=== PATIENT | male | born 1945 | race Caucasian/White ===

== ENCOUNTER → 2023-10-17 12:02 | Outpatient (REF) | payer OTHER, SELFPAY ==
[2023-10-17 12:24] LABS: % Basophils 0.9 % (0-2); % Eosinophils 3.1 % (0-6); % Immature Granulocytes 0.2 % (0-0.5); % Lymphocytes 19.6 % (20.5-51.1); % Monocytes 7.4 % (1.7-9.3); % Neutrophils 68.8 % (42.2-75.2); Absolute Basophils 0.1 10^3/uL (0-0.2); Absolute Eosinophils 0.2 10^3/uL (0-0.7); Absolute Lymphocytes 1.1 10^3/uL (1.2-3.4); Absolute Monocytes 0.4 10^3/uL (0.1-0.6); Absolute Neutrophils 3.7 10^3/uL (1.4-6.5); Hematocrit 41.7 % (39.0-52.0); Hemoglobin 14.5 g/dL (13.0-18.0); Mean Corp Hgb Conc. 34.8 g/dL (33.0-37.0); Mean Corpuscular Hgb 32.3 pg (27.0-31.0); Mean Corpuscular Volume 92.9 fL (80.0-94.0); Mean Platelet Volume 11.7 fL (7.4-10.4); Nucleated Red Blood Cells % 0 % (-); Platelet Count 209 10^3/uL (130-400); Red Blood Cell Count 4.49 10^6/uL (4.70-6.10); Red Cell Dist. Width 13.1 % (11.5-14.5); White Blood Cell Count 5.4 10^3/uL (4.8-10.8)
[2023-10-17 12:25] LABS: Urine Albumin Negative (Neg - Trace); Urine Bilirubin Negative (Negative); Urine Character Clear (Clear); Urine Color Yellow; Urine Glucose Negative (Negative); Urine Ketone Negative (Negative); Urine Leukocyte Negative (Negative); Urine Nitrite Negative (Negative); Urine Occult Blood Negative (Negative); Urine Specific Gravity 1.015 (<1.030); Urine Urobilinogen Negative (Neg - 1+)
[2023-10-17 13:02] LABS: TSH 0.85 uIU/ml (0.47-4.68)
== END ==
LOC: OLABPATH 12:02
PROVIDERS: ATTENDING PHYSICIAN Internal Medicine
DX: I50.9 Heart failure, unspecified (principal); E03.9 Hypothyroidism, unspecified; I10 Essential (primary) hypertension; N39.0 Urinary tract infection, site not specified
CPT/HCPCS: 36415; 81003; 84443; 85025

== ENCOUNTER → 2023-12-05 12:49 | Outpatient (REF) | payer OTHER, SELFPAY ==
[2023-12-05 14:00] LABS: Urine Albumin Negative (Neg - Trace); Urine Bilirubin Negative (Negative); Urine Character Clear (Clear); Urine Color Yellow; Urine Glucose Negative (Negative); Urine Ketone Negative (Negative); Urine Leukocyte Negative (Negative); Urine Nitrite Negative (Negative); Urine Occult Blood Negative (Negative); Urine Urobilinogen Negative (Neg - 1+)
== END ==
LOC: OLABPATH 12:49
PROVIDERS: ATTENDING PHYSICIAN Internal Medicine
DX: N39.0 Urinary tract infection, site not specified (principal)
CPT/HCPCS: 81003; 87086

== ENCOUNTER 2023-12-07 09:29 | Emergency (ER) | payer OTHER, SELFPAY ==
[2023-12-07 09:33] VITALS: BP 119/65; BMI 22.4
--- NOTE | 2023-12-07 10:33 | ED.GENMED ---
History of Present Illness
General
Chief Complaint: Musculo-Skeletal Complaint
Time Seen by Provider: 12/07/23 09:46
Travel History
Have you had any contact with someone who has COVID-19?: No
Do you have any symptoms of coronavirus? Fever > 100 degrees, chills, cough, shortness of breath, sore throat, loss of taste or smell, muscle aches, or headache?: No
History of Present Illness
History of Present Illness:
78-year-old male with history of neurodegenerative disorder presents from nursing facility due to a fall, apparently lost his balance and fell forward onto his knees. 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
neurodegenerative condition, currently on lacosamide for this. Patient is unable to provide any history
Past History
Past History
ED Past Medical History: None
ED Past Surgical History: Appendectomy and Orthopedic
Social History
Tobacco: Former smoker
Personal:
Review of Systems
Review of Systems
Allergies reviewed?: Yes
All Other Systems: ROS reviewed and negative except as documented in HPI and ROS
Phy Exam
Physical Exam
Physical Exam:
GEN: Well appearing, NAD, WDWN
HEENT: Oral mucosa moist, no scleral icterus, no nasal congestion
Cardiac: Regular rate
Lung: No respiratory distress, no tachypnea
MSK: No gross deformity or injuries
Skin: Good color, no pallor or jaundice, no rashes
Neuro: Alert, follows commands, marked aphasia, shuffling gait
Psych: Calm, cooperative
Course
Orders/Labs/Results
Orders:
Orders
12/07/23 10:52
Complete Blood Count/With Diff Urgent
Comprehensive Metabolic Panel Urgent
Urinalysis Reflex To Culture Urgent
Date Specimen was Collected: 12/07/23
Time Specimen was Collected: 10:46
Abnormal Lab Results
12/07/23
10:52
RBC 4.07 L 10^6/uL
(4.70-6.10)
Hgb 12.9 L g/dL
(13.0-18.0)
Hct 37.4 L %
(39.0-52.0)
MCH 31.7 H pg
(27.0-31.0)
Absolute Lymphs (auto) 1.1 L 10^3/uL
(1.2-3.4)
Total Protein 5.9 L g/dl
(6.3-8.2)
12/07/23 10:52
12/07/23 10:52
Vital Signs
Initial and Last Documented VS:
Initial Vital Signs
Temp Pulse Resp BP Pulse Ox
98.1 F 68 18 119/65 100
12/07/23 09:33 12/07/23 09:33 12/07/23 09:33 12/07/23 09:33 12/07/23 09:33
Last Documented Vital Signs
Temp Pulse Resp BP Pulse Ox
98.1 F 60 18 120/70 100
12/07/23 09:33 12/07/23 14:47 12/07/23 14:47 12/07/23 14:47 12/07/23 14:47
MDM/Problems Addressed
MDM/Problems Addressed:
Labs are unremarkable, no indication for CT of the head as the patient did not strike his head. I discussed with his neurologist and unfortunately there is not much more to offer at this point. Discharged back to nursing facility in stable
condition
*Critical Care Note
Total Time (30-74mins, 75-104mins- exclusive of procedures): Not Applicable
ED Attending Note
-
Portions of this chart may have been created with voice recognition software.� Occasional wrong word or��sound alike� substitutions may have occurred due to the inherent limitations of voice recognition software.
Discharge Plan
Departure
Patient Disposition: Residential/SNF
Date of Disposition: 12/07/23
Time of Disposition: 13:17
Discharge Problem:
Dementia
Instructions: Dementia (DC)
Prescriptions:
No Action
dextromethorphan-guaifenesin [Guaifenesin DM] 10-100 mg/5 mL Syrup
10 ml PO Q4HPRN PRN (Reason: cough)
lacosamide [Vimpat] 100 mg Tablet
100 mg PO BID
Referrals:
Ned Sarah DO [Family Provider] -
Interventions
Interventions:
*Risk Screen - Suicide Last Done: 12/07/23 09:33
*General Assessment Last Done: 12/07/23 09:33
*Neglect/Abuse Screening Last Done: 12/07/23 09:33
*Nursing Disposition Last Done: 12/07/23 14:48
ED-Musculoskeletal Assessment Last Done: 12/07/23 10:21
Discharge Date and Time
Discharge Date/Time: 12/07/23 14:49
Print Language: MONTENEGRIN
[2023-12-07 11:02] LABS: Urine Albumin Negative (Neg - Trace); Urine Bilirubin Negative (Negative); Urine Character Clear (Clear); Urine Color Yellow; Urine Glucose Negative (Negative); Urine Ketone Negative (Negative); Urine Leukocyte Negative (Negative); Urine Nitrite Negative (Negative); Urine Occult Blood Negative (Negative); Urine Urobilinogen Negative (Neg - 1+)
[2023-12-07 11:03] LABS: % Basophils 0.8 % (0-2); % Immature Granulocytes 0.2 % (0-0.5); % Lymphocytes 22.1 % (20.5-51.1); % Monocytes 7.9 % (1.7-9.3); Absolute Eosinophils 0.1 10^3/uL (0-0.7); Absolute Lymphocytes 1.1 10^3/uL (1.2-3.4); Absolute Monocytes 0.4 10^3/uL (0.1-0.6); Absolute Neutrophils 3.3 10^3/uL (1.4-6.5); Hematocrit 37.4 % (39.0-52.0); Hemoglobin 12.9 g/dL (13.0-18.0); Mean Corp Hgb Conc. 34.5 g/dL (33.0-37.0); Mean Corpuscular Hgb 31.7 pg (27.0-31.0); Mean Corpuscular Volume 91.9 fL (80.0-94.0); Mean Platelet Volume 9.8 fL (7.4-10.4); Nucleated Red Blood Cells % 0 % (-); Platelet Count 230 10^3/uL (130-400); Red Blood Cell Count 4.07 10^6/uL (4.70-6.10); Red Cell Dist. Width 13.4 % (11.5-14.5); White Blood Cell Count 4.8 10^3/uL (4.8-10.8)
[2023-12-07 11:18] LABS: ALT (SGPT) 20 U/L (0-50); AST (SGOT) 21 U/L (17-59); Albumin 3.6 g/dl (3.5-5.0); Alkaline Phosphatase 60 U/L (38-126); Blood Urea Nitrogen 14 mg/dl (9-20); Carbon Dioxide 28 mmol/L (22-30); Chloride 107 mmol/L (98-107); Estimated Creatinine Clearance 94 ml/min; Glucose 93 mg/dl (70-99); Potassium 4.3 mmol/L (3.5-5.1); Sodium 138 mmol/L (135-145); Total Bilirubin 0.4 mg/dl (0.2-1.3); Total Protein 5.9 g/dl (6.3-8.2); eGFR > 60.00
[2023-12-07 11:57] VITALS: BP 114/69
[2023-12-07 14:47] VITALS: BP 120/70
== END 2023-12-07 14:49 ==
LOC: EMR 09:29
PROVIDERS: Physician Assistant; EMERGENCY PHYSICIAN Emergency Medicine; FAMILY PHYSICIAN Internal Medicine
DX: F03.90 Unspecified dementia, unspecified severity, without behavioral disturbance, psychotic disturbance, mood disturbance, and anxiety (principal); W01.0XXA Fall on same level from slipping, tripping and stumbling without subsequent striking against object, initial encounter; Z87.891 Personal history of nicotine dependence
CPT/HCPCS: 99283; 80053; 81003; 85025

== ENCOUNTER → 2023-12-31 09:19 | Outpatient (REF) | payer OTHER, SELFPAY ==
--- NOTE | 2024-01-02 12:36 | EEG.RPT ---
Electroencephalogram Report
Recording
Date of EE01/02/24
Length of EEG recordin hours 29 minutes
Done with Video Recording: No
Patient Status: Outpatient
Recording Conditions: Awake, Drowsy and Asleep
Hyperventilation Performed: No
Photic Stimulation Performed: Yes
Report
METHODS:
A 21 channel digitized electroencephalogram (EEG) was initiated in the Clinical Neurophysiology Laboratory. The patient wore the device outside of the laboratory and returned after 24 hours for electrode and recorder removal.� The 10/20
international system of electrode placement was used with bipolar electrode montage recorded.� ECG was monitored. Duration was 24 hours and 29 minutes.
IMPRESSION(S):
Quality
Good
Background
In maximal wakefulness there was an alpha background.
There was a normal anterior-posterior voltage gradient. With eye opening the background activity changed.
No significant asymmetries of background activity noted.
Sleep
Drowsiness was suggested by slowing of the background rhythms
Stage I sleep was recorded
Stage 2 sleep was recorded
Slow wave sleep recorded
ECG:
Normal sinus rhythm
Abnormalities
Occasional Left C3 maximal sharp waves seen representing interictal epileptiform discharges
No seizures seen
Events
No epileptiform correlate to the Right arm twitch seen at 1029 AM
24 HOUR AMBULATORY EEG SUMMARY
24 HOUR EEG CONCLUSION(S):
Mildly abnormal EEG significant for left C3 interictal epileptiform discharges
CLINICAL CORRELATION:
This study demonstrates an area on the left hemisphere that has increased susceptibility to seizures, no seizures were recorded on this study. In the right clinical context this may be consistent with epilepsy.
Clinical correlation required
== END ==
LOC: EEG 09:19
PROVIDERS: ATTENDING PHYSICIAN Student in an Organized Health Care Education/Training Program; FAMILY PHYSICIAN Internal Medicine
DX: G40.109 Localization-related (focal) (partial) symptomatic epilepsy and epileptic syndromes with simple partial seizures, not intractable, without status epilepticus (principal)
CPT/HCPCS: 95708

== ENCOUNTER → 2024-02-07 11:36 | Outpatient (REF) | payer MEDICARE, OTHER, SELFPAY ==
[2024-02-07 13:37] LABS: Blood Urea Nitrogen 16 mg/dl (9-20); Calcium 9.7 mg/dl (8.4-10.2); Carbon Dioxide 27 mmol/L (22-30); Chloride 104 mmol/L (98-107); Glucose 91 mg/dl (70-99); Potassium 4.4 mmol/L (3.5-5.1); Sodium 139 mmol/L (135-145); eGFR > 60.00
== END ==
LOC: OLABPATH 11:36
PROVIDERS: ATTENDING PHYSICIAN Internal Medicine
DX: I10 Essential (primary) hypertension (principal); N18.9 Chronic kidney disease, unspecified; C88.0 Waldenstrom macroglobulinemia
CPT/HCPCS: 36415; 80048

== ENCOUNTER 2024-02-10 09:26 | Emergency (ER) | payer OTHER, SELFPAY ==
[2024-02-10 09:28] VITALS: BP 154/67
--- NOTE | 2024-02-10 09:38 | ED.MUSCINJ ---
HPI-Injury
General
Chief Complaint: Fall
Time Seen by Provider: 02/10/24 09:28
Travel History
Have you had any contact with someone who has COVID-19?: Unable to Answer
Do you have any symptoms of coronavirus? Fever > 100 degrees, chills, cough, shortness of breath, sore throat, loss of taste or smell, muscle aches, or headache?: No
History of Present Illness-Injury
Initial Injury comments:
[facility] an [facility]itnessed fall. He is a 78-year-old gentleman with a history of dementia and neurodegenerative disorder. Per documentation, patient had an unwitnessed fall 2 days ago. Since
then he has been complaining of right hip pain. He cannot provide a detailed history. Per reports, he is at his baseline mental status.
Past History
Past History
ED Past Medical History: None
ED Past Surgical History: Appendectomy and Orthopedic
Social History
Tobacco: Former smoker
Personal:
Phy Exam
Physical Exam
Physical Exam:
General: No acute distress
Head: NCAT
Neck, Normal in appearance, no swelling
Respiratory: No Respiratory distress
Abdomen: No distension, no tenderness
back: no tenderness
Ext: There is bruising and tenderness to right lateral hip region and around the greater trochanter. He has full range of motion of the hip without crepitus. Strong palpable distal pulses. 5 out of 5 strength throughout the right lower extremity.
Compartments are soft.
Neuro: RAMIREZ, AOx1 to person, aphasia noted
Skin: Normal color, telangiectasias to face
Injury Course
Orders/Labs/Results
Orders:
Orders
02/10/24
Electrocardiogram (*1) Stat
Reason for Study: Chest Pain
Comment: DONE NO ORDER ENTERED
02/10/24 09:36
0.9% Sodium Chloride 1000 ml [Nss] 500 ml IV BOLUS
Acetaminophen [Tylenol] 650 mg PO NOW STA
Straight Cath As Directed
Frequency: One time now
Hip, Right 2-3 Views [CR Hip - RT w/wo Pel 2-3 Vw*] Urgent
Comment:
Reason For Exam: bruising, fall
Include a pelvis x-ray?: Yes
02/10/24 09:53
Basic Metabolic Panel Urgent
Complete Blood Count/With Diff Urgent
02/10/24 11:57
Urinalysis Reflex To Culture Urgent
Date Specimen was Collected: 02/10/24
Time Specimen was Collected: 11:56
Abnormal Lab Results
02/10/24 02/10/24
09:53 11:57
MCH 31.5 H pg
(27.0-31.0)
Absolute Lymphs (auto) 0.9 L 10^3/uL
(1.2-3.4)
Lymphocytes % 17.7 L %
(20.5-51.1)
Creatinine 0.6 L mg/dL
(0.7-1.3)
Urine Ketones 1+ A
(Negative)
02/10/24 09:53
02/10/24 09:53
*Critical Care Note
Total Time (30-74mins, 75-104mins- exclusive of procedures): Not Applicable
ED Attending Note
ED Attending Note
ED Attending Note:
X-rays are negative for fracture at site of tenderness and bruising. Suspect bony contusion. Labs and urine otherwise at baseline. Patient has baseline mental status. Will discharge back to nursing facility.
-
Portions of this chart may have been created with voice recognition software.� Occasional wrong word or��sound alike� substitutions may have occurred due to the inherent limitations of voice recognition software.
Discharge Plan
Departure
Patient Disposition: [facility]/SNF
Date of Disposition: 02/10/24
Time of Disposition: 12:24
Patient with high blood pressure during this ER visit?: Yes
Discharge Problem:
Contusion of hip
Instructions: Hip Pointer (DC)
Prescriptions:
No Action
dextromethorphan-guaifenesin [Guaifenesin DM] 10-100 mg/5 mL Syrup
10 ml PO Q4HPRN PRN (Reason: cough)
lacosamide [Vimpat] 100 mg Tablet
100 mg PO BID
Referrals:
Ned Sarah DO [Family Provider] -
Interventions
Interventions:
*Risk Screen - Suicide Last Done: 02/10/24 09:28
*General Assessment Last Done: 02/10/24 09:28
*Neglect/Abuse Screening Last Done: 02/10/24 09:28
ED- Fall Risk Assessment Last Done: 02/10/24 12:03
*ED COVID-19 Vaccine History Last Done: 02/10/24 09:28
*Nursing Disposition Last Done: 02/10/24 14:50
ED-Musculoskeletal Assessment Last Done: 02/10/24 10:32
ED- Neurological Assessment Last Done: 02/10/24 10:32
ED-Skin Assessment Last Done: 02/10/24 10:32
Discharge Date and Time
Discharge Date/Time: 02/10/24 14:52
Print Language: ICELANDIC
[2024-02-10 10:02] LABS: % Basophils 0.8 % (0-2); % Eosinophils 4.6 % (0-6); % Immature Granulocytes 0.2 % (0-0.5); % Lymphocytes 17.7 % (20.5-51.1); % Monocytes 5.6 % (1.7-9.3); % Neutrophils 71.1 % (42.2-75.2); Absolute Eosinophils 0.2 10^3/uL (0-0.7); Absolute Lymphocytes 0.9 10^3/uL (1.2-3.4); Absolute Monocytes 0.3 10^3/uL (0.1-0.6); Absolute Neutrophils 3.7 10^3/uL (1.4-6.5); Hematocrit 42.1 % (39.0-52.0); Hemoglobin 14.8 g/dL (13.0-18.0); Mean Corp Hgb Conc. 35.2 g/dL (33.0-37.0); Mean Corpuscular Hgb 31.5 pg (27.0-31.0); Mean Corpuscular Volume 89.6 fL (80.0-94.0); Mean Platelet Volume 9.8 fL (7.4-10.4); Nucleated Red Blood Cells % 0 % (-); Platelet Count 165 10^3/uL (130-400); Red Cell Dist. Width 14.1 % (11.5-14.5); White Blood Cell Count 5.2 10^3/uL (4.8-10.8)
[2024-02-10 10:11] LABS: Blood Urea Nitrogen 16 mg/dl (9-20); Calcium 9.7 mg/dl (8.4-10.2); Carbon Dioxide 28 mmol/L (22-30); Chloride 103 mmol/L (98-107); Glucose 86 mg/dl (70-99); Potassium 4.3 mmol/L (3.5-5.1); Sodium 139 mmol/L (135-145); eGFR > 60.00
[2024-02-10] MEDS: TYLENOL 650 MG PO (10:12)
[2024-02-10] MEDS: NSS 500 IV (11:20)
[2024-02-10 11:21] VITALS: BP 143/73
[2024-02-10 12:06] LABS: Urine Albumin Negative (Neg - Trace); Urine Bilirubin Negative (Negative); Urine Character Clear (Clear); Urine Color Yellow; Urine Glucose Negative (Negative); Urine Ketone 1+ (Negative); Urine Leukocyte Negative (Negative); Urine Nitrite Negative (Negative); Urine Occult Blood Negative (Negative); Urine Specific Gravity 1.015 (<1.030); Urine Urobilinogen Negative (Neg - 1+)
[2024-02-10 14:50] VITALS: BP 99/73
== END 2024-02-10 14:52 ==
LOC: EMR 09:26
PROVIDERS: EMERGENCY PHYSICIAN Emergency Medicine; FAMILY PHYSICIAN Internal Medicine
DX: S70.01XA Contusion of right hip, initial encounter (principal); W19.XXXA Unspecified fall, initial encounter; Z91.048 Other nonmedicinal substance allergy status; R03.0 Elevated blood-pressure reading, without diagnosis of hypertension; F03.90 Unspecified dementia, unspecified severity, without behavioral disturbance, psychotic disturbance, mood disturbance, and anxiety; Z87.891 Personal history of nicotine dependence
CPT/HCPCS: 99284; 51798; 51701; 73502; 80048; 81003; 85025; 93005

== ENCOUNTER → 2024-02-21 12:41 | Outpatient (REF) | payer MEDICARE, SELFPAY ==
[2024-02-21 13:59] LABS: Blood Urea Nitrogen 19 mg/dl (9-20); Carbon Dioxide 29 mmol/L (22-30); Chloride 105 mmol/L (98-107); Glucose 78 mg/dl (70-99); Potassium 4.1 mmol/L (3.5-5.1); Sodium 139 mmol/L (135-145); eGFR > 60.00
== END ==
LOC: OLABPATH 12:41
PROVIDERS: ATTENDING PHYSICIAN Internal Medicine
DX: I10 Essential (primary) hypertension (principal); E78.49 Other hyperlipidemia; I50.9 Heart failure, unspecified
CPT/HCPCS: 36415; 80048

== ENCOUNTER 2024-03-29 09:30 | Emergency (ER) | payer OTHER, SELFPAY ==
[2024-03-29 09:38] VITALS: BP 137/65
[2024-03-29 10:00] VITALS: BP 117/64
--- NOTE | 2024-03-29 10:06 | ED.GENMED ---
History of Present Illness
<Alley Putnam MD, Resident - Last Filed: 03/29/24 13:16>
General
Chief Complaint: Fall
Source: patient, records and ambulance crew
Time Seen by Provider: 03/29/24 09:35
History of Present Illness
History of Present Illness:
The patient presented to ER after he had multiple fall down in his halfway. The ambulance crew reported that the patient had fall down on Sunday and hurt his right wrist. At that time he was checked by a mobile care team and got an X-ray but they
do not know the results. Following the patient fall down again this morning, but he was able to stand by himself. It was told that the patient has PMH of aphasia, severe dementia, HLD, HTN, CHF, CKD II and goiter.
PMH: aphasia, severe dementia, HLD, HTN, CHF, CKD II and goiter, right fascial spasm
His current medications:
Carbamazepine 200 mg BID ( for fascial spasm)
Thylenol 325 mg PRN
Tussion Q4 H PRN
The ambulance crew reported that the patient is not DNR
If applicable-neuro sx onset
Date of onset of symptoms: 04/28/24
Past History
<Alley Putnam MD, Resident - Last Filed: 03/29/24 13:16>
Past History
ED Past Medical History: None
ED Past Surgical History: Appendectomy and Orthopedic
Social History
Tobacco: Former smoker
Personal:
Phy Exam
<Alley Putnam MD, Resident - Last Filed: 03/29/24 13:16>
General Physical Exam
General Presentation: moderate distress
General age: appears stated age
General Skin: warm
General Habitus: elderly
General Mental: alert
General Hydration: appears well hydrated
Eye Exam
Eye Exam: EOMI, conjunctiva normal and other (Bruising under eyes )
Cardiovascular Exam
Cardiovascular Exam: regular rate/rhythm, no edema and no JVD
Pulmonary Exam
Pulmonary Exam: lungs clear, no respiratory distress, no crackles, no stridor and no wheezing
Gastrointestinal Exam
Gastrointestinal Exam: non tender and soft
Neurological Exam
Neurological Exam: alert, CN II-XII intact, normal reflexs and other (right upper extremity motor exam was limited due pain. Left upper extremity motor exam was normal. Bilateral lower extremities motor exam was found normal. No focal weakness was
found during the examniation. )
Musculoskeletal Exam
Musculoskeletal Exam: other (right wrist pain with ROM and right elbow pain with ROM. Some bruising on right knee but ROM of bilateral lower extremity were in normal limits. )
Course
<Alley Putnam MD, Resident - Last Filed: 03/29/24 13:16>
Orders/Labs/Results
Orders:
Orders
03/29/24 09:55
CT Head W/o Iv Contrast Urgent
Comment:
Reason For Exam: head injury
03/29/24 09:56
Wrist, Right 3 Views [CR Wrist - Right Min 3 Views] Urgent
Comment:
Reason For Exam: limited and painful rom
03/29/24 09:57
Elbow, Right, 2 view [CR Elbow - Right Min 2 View] Urgent
Comment:
Reason For Exam: pain with ROM
03/29/24 09:58
Acetaminophen [Tylenol] 650 mg PO NOW STA
Tetanus/Diphth/Acelpertussis [Adacel] 0.5 ml IM .ONCE ONE
03/29/24 10:05
CT Cervical Spine W/o Iv Contr Urgent
Comment:
Reason For Exam: unwitnessed fall with headstrike
CR Hand - Right Min 3 Views Urgent
Comment:
Reason For Exam: brusing and pain right hand
03/29/24 10:12
Code Status As Directed
Resuscitation Status: Full Code
03/29/24 10:29
CR Hip - RT w/wo Pel 2-3 Vw* Urgent
Comment:
Reason For Exam: right hip pain s/p
Include a pelvis x-ray?: Yes
03/29/24 11:12
Basic Metabolic Panel Urgent
CPK [Creatine Phosphokinase] Urgent
Complete Blood Count/With Diff Urgent
Urinalysis Reflex To Culture Urgent
Date Specimen was Collected: 03/29/24
Time Specimen was Collected: 10:01
03/29/24 13:00
Straight Cath As Directed
Frequency: One time now
Abnormal Lab Results
03/29/24
11:12
RBC 4.05 L 10^6/uL
(4.70-6.10)
Hgb 12.9 L g/dL
(13.0-18.0)
Hct 36.8 L %
(39.0-52.0)
MCH 31.9 H pg
(27.0-31.0)
Absolute Lymphs (auto) 0.7 L 10^3/uL
(1.2-3.4)
Neutrophils % 82.9 H %
(42.2-75.2)
Lymphocytes % 9.7 L %
(20.5-51.1)
Creatinine 0.6 L mg/dL
(0.7-1.3)
03/29/24 11:12
03/29/24 11:12
Vital Signs
Initial and Last Documented VS:
Initial Vital Signs
Temp Pulse Resp BP Pulse Ox
98.5 F 65 18 137/65 99
03/29/24 09:38 03/29/24 09:38 03/29/24 09:38 03/29/24 09:38 03/29/24 09:38
Last Documented Vital Signs
Temp Pulse Resp BP Pulse Ox
98.5 F 65 18 117/64 98
03/29/24 09:38 03/29/24 09:38 03/29/24 09:38 03/29/24 10:00 03/29/24 13:00
<Matt Vaughn MD - Last Filed: 03/29/24 12:49>
Orders/Labs/Results
Orders:
Orders
03/29/24 09:55
CT Head W/o Iv Contrast Urgent
Comment:
Reason For Exam: head injury
03/29/24 09:56
Wrist, Right 3 Views [CR Wrist - Right Min 3 Views] Urgent
Comment:
Reason For Exam: limited and painful rom
03/29/24 09:57
Elbow, Right, 2 view [CR Elbow - Right Min 2 View] Urgent
Comment:
Reason For Exam: pain with ROM
03/29/24 09:58
Acetaminophen [Tylenol] 650 mg PO NOW STA
Tetanus/Diphth/Acelpertussis [Adacel] 0.5 ml IM .ONCE ONE
03/29/24 10:05
CT Cervical Spine W/o Iv Contr Urgent
Comment:
Reason For Exam: unwitnessed fall with headstrike
CR Hand - Right Min 3 Views Urgent
Comment:
Reason For Exam: brusing and pain right hand
03/29/24 10:12
Code Status As Directed
Resuscitation Status: Full Code
03/29/24 10:29
CR Hip - RT w/wo Pel 2-3 Vw* Urgent
Comment:
Reason For Exam: right hip pain s/p
Include a pelvis x-ray?: Yes
03/29/24 11:12
Basic Metabolic Panel Urgent
CPK [Creatine Phosphokinase] Urgent
Complete Blood Count/With Diff Urgent
Urinalysis Reflex To Culture Urgent
Date Specimen was Collected: 03/29/24
Time Specimen was Collected: 10:01
03/29/24 13:00
Straight Cath As Directed
Frequency: One time now
Abnormal Lab Results
03/29/24
11:12
RBC 4.05 L 10^6/uL
(4.70-6.10)
Hgb 12.9 L g/dL
(13.0-18.0)
Hct 36.8 L %
(39.0-52.0)
MCH 31.9 H pg
(27.0-31.0)
Absolute Lymphs (auto) 0.7 L 10^3/uL
(1.2-3.4)
Neutrophils % 82.9 H %
(42.2-75.2)
Lymphocytes % 9.7 L %
(20.5-51.1)
Creatinine 0.6 L mg/dL
(0.7-1.3)
03/29/24 11:12
03/29/24 11:12
Vital Signs
Initial and Last Documented VS:
Initial Vital Signs
Temp Pulse Resp BP Pulse Ox
98.5 F 65 18 137/65 99
03/29/24 09:38 03/29/24 09:38 03/29/24 09:38 03/29/24 09:38 03/29/24 09:38
Last Documented Vital Signs
Temp Pulse Resp BP Pulse Ox
98.5 F 65 18 117/64 98
03/29/24 09:38 03/29/24 09:38 03/29/24 09:38 03/29/24 10:00 03/29/24 13:00
<Alley Putnam MD, Resident - Last Filed: 03/29/24 13:16>
*Critical Care Note
Total Time (30-74mins, 75-104mins- exclusive of procedures): Not Applicable
<Alley Putnam MD, Resident - Last Filed: 03/29/24 13:16>
Comment
Comment:
Musculoskeletal injury, CVA, electrolyte imbalance, UTI?
ED Attending Note
<Alley Putnam MD, Resident - Last Filed: 03/29/24 13:16>
-
Portions of this chart may have been created with voice recognition software.� Occasional wrong word or��sound alike� substitutions may have occurred due to the inherent limitations of voice recognition software.
<Matt Vaughn MD - Last Filed: 03/29/24 12:49>
ED Attending Note
Patient seen and examined by attending physician: Yes
I performed a history and physical exam of patient and discussed management with resident, I reviewed resident's note and agree with documented findings and plan of care.: Yes
ED Attending Note:
I have seen and evaluated the patient with a [id number] encounter. I have spoken to the resident and involved in the medical history, the physical exam, medical decision making.
Evaluation and management service: agree unless noted differently below.
Results interpretation: agree unless noted differently below.
Focused HPI: 78-year-old male with a past medical history of vascular dementia with expressive aphasia, hypertension, chronic kidney disease who presents to the emergency room from his skilled nursing [facility] for evaluation after
fall. Patient is very limited as a historian due to his baseline aphasia although he can answer simple yes or no questions consistently and follow commands. He does indicate that he fell down today. He denies passing out. When asked if he
tripped and fell he says yes. On review of systems from head to toe he says that he has pain in his right wrist and hand, pain in his right forehead. He denied pain elsewhere on head to toe ROS. Spoke to skilled nursing staff to obtain collateral
history: Apparently had a fall yesterday and that is when he sustained the contusion to the right hand. He apparently fell again overnight around 4 AM and sustained contusion to the head was also complaining of pain in the right hip and was sent
out to the emergency room. He is not on blood thinners. Nursing staff reports no prolonged downtime, patient has a bed alarm.
Physical exam: Awake and alert sitting up in bed. Has aphasia but is able to answer yes or no questions and follow basic commands. Vital signs are all normal. He has contusion to the right forehead and some ecchymosis inferior to the right orbit,
tenderness over the right forehead no facial bone instability. He has some tenderness at the nasal bridge but no epistaxis and no septal hematoma. Pupils are equal round and reactive to light bilaterally and extraocular movements are intact. No
apparent tenderness in the cervical spine. He has no signs of trauma the back or flank and no tenderness in the thoracic or lumbar spine. He has no chest wall tenderness or ecchymosis. No abdominal tenderness. He has some swelling and ecchymosis
on the dorsum of the right hand extending from the distal forearm towards the knuckles of the hand; diffusely tender but no focal area of tenderness in the hand or wrist. He seems to have difficulty making a fist due to pain. He has no
reproducible tenderness in the right elbow or shoulder. No signs of trauma to the left upper extremity. He has no reproducible tenderness in the lower extremities bilaterally and no ecchymosis or edema. He does have pain on passive range of
motion of the right hip, no pain on range of motion of the left hip. Good pulses in all extremities.
Medical Decision Makin-year-old male presents after a fall out of bed overnight. This is his second fall in 48 hours. Has a history of frequent falls. He is not on blood thinners. Vitals and exam as above. Will check CT head and cervical
spine. Check x-ray of the right wrist and hand. Check x-ray of the right elbow. Check x-ray of the right hip. Will provide Tylenol for pain. With 2 falls in the past 48 hours will check screening labs and urinalysis. Check an EKG. Reassess
after the above.
Labs reviewed: CBC shows marginal anemia, CMP no clinically significant abnormalities. CT head and cervical spine negative for any acute intracranial pathology or cervical spine injury. X-rays of the hand, hip, wrist and elbow reviewed and show no
acute fracture. Urinalysis is pending. Patient's vitals have been stable. I think he is stable for discharge pending UA.
Discharge Plan
Departure
Patient with high blood pressure during this ER visit?: No
Discharge Problem:
Contusion of forehead, Contusion of hip, Contusion of hand, Abrasion
Instructions: Contusion (DC), Skin Abrasions (DC)
Prescriptions:
No Action
dextromethorphan-guaifenesin [Guaifenesin DM] 10-100 mg/5 mL Syrup
10 ml PO Q4HPRN PRN (Reason: cough)
lacosamide [Vimpat] 100 mg Tablet
100 mg PO BID
Referrals:
[facility] [Outside]
Ned Sarah DO [Family Provider] -
Activity Restrictions/Additional Instructions:
Thank you for visiting the Emergency Department at [facility].
1. Please schedule a follow up appointment as directed. Call first thing tomorrow morning to make an appointment.
2. If indicated, please take your medications as instructed and indicated on discharge paperwork.
3. If any of your symptoms do not improve, or persist, or become more severe within 6-12 hours, please return to the emergency department for further care.
4. Please return to the emergency department if you develop a headache, neck pain/stiffness, fever greater than 100.4F, chest pain, shortness of breath, persistent nausea, vomiting, slurred speech, difficulty walking, numbness/tingling, weakness,
signs of infection or any other symptoms that are worrisome to you.
Please call [phone] if you have any questions.
Interventions
Interventions:
*Risk Screen - Suicide Last Done: 03/29/24 09:38
*General Assessment Last Done: 03/29/24 09:38
*Neglect/Abuse Screening Last Done: 03/29/24 09:38
ED- Fall Risk Assessment Last Done: 03/29/24 09:38
ED-Musculoskeletal Assessment Last Done: 03/29/24 09:38
ED- Neurological Assessment Last Done: 03/29/24 09:38
ED-Skin Assessment Last Done: 03/29/24 09:46
Discharge Date and Time
Print Language: MALIAN
[2024-03-29] MEDS: TYLENOL 650 MG PO (11:19)
[2024-03-29] MEDS: ADACEL 0.5 ML IM (11:21)
[2024-03-29 11:34] LABS: % Basophils 0.1 % (0-2); % Eosinophils 0.4 % (0-6); % Immature Granulocytes 0.1 % (0-0.5); % Lymphocytes 9.7 % (20.5-51.1); % Monocytes 6.8 % (1.7-9.3); % Neutrophils 82.9 % (42.2-75.2); Absolute Lymphocytes 0.7 10^3/uL (1.2-3.4); Absolute Monocytes 0.5 10^3/uL (0.1-0.6); Absolute Neutrophils 5.6 10^3/uL (1.4-6.5); Hematocrit 36.8 % (39.0-52.0); Hemoglobin 12.9 g/dL (13.0-18.0); Mean Corp Hgb Conc. 35.1 g/dL (33.0-37.0); Mean Corpuscular Hgb 31.9 pg (27.0-31.0); Mean Corpuscular Volume 90.9 fL (80.0-94.0); Mean Platelet Volume 10.1 fL (7.4-10.4); Nucleated Red Blood Cells % 0 % (-); Platelet Count 204 10^3/uL (130-400); Red Blood Cell Count 4.05 10^6/uL (4.70-6.10); Red Cell Dist. Width 14.2 % (11.5-14.5); White Blood Cell Count 6.8 10^3/uL (4.8-10.8)
[2024-03-29 11:58] LABS: Blood Urea Nitrogen 20 mg/dl (9-20); Calcium 9.2 mg/dl (8.4-10.2); Carbon Dioxide 30 mmol/L (22-30); Chloride 104 mmol/L (98-107); Creatine Phosphokinase 98 U/L (55-170); Glucose 87 mg/dl (70-99); Sodium 138 mmol/L (135-145); eGFR > 60.00
[2024-03-29 13:01] LABS: Urine Albumin Negative (Neg - Trace); Urine Bilirubin Negative (Negative); Urine Character Clear (Clear); Urine Color Yellow; Urine Glucose Negative (Negative); Urine Ketone Negative (Negative); Urine Leukocyte Negative (Negative); Urine Nitrite Negative (Negative); Urine Occult Blood Negative (Negative); Urine Specific Gravity 1.015 (<1.030); Urine Urobilinogen Negative (Neg - 1+); Urine pH 6.5 (5.0-9.0)
== END 2024-03-29 16:01 | disposition home or self-care (01) ==
LOC: EMR 09:30
PROVIDERS: Student in an Organized Health Care Education/Training Program; EMERGENCY PHYSICIAN Emergency Medicine; FAMILY PHYSICIAN Internal Medicine
DX: S00.83XA Contusion of other part of head, initial encounter (principal); S70.00XA Contusion of unspecified hip, initial encounter; S60.229A Contusion of unspecified hand, initial encounter; W19.XXXA Unspecified fall, initial encounter; F03.C0 Unspecified dementia, severe, without behavioral disturbance, psychotic disturbance, mood disturbance, and anxiety; I13.0 Hypertensive heart and chronic kidney disease with heart failure and stage 1 through stage 4 chronic kidney disease, or unspecified chronic kidney disease; I50.9 Heart failure, unspecified; N18.2 Chronic kidney disease, stage 2 (mild); E04.2 Nontoxic multinodular goiter; E78.00 Pure hypercholesterolemia, unspecified; Z87.891 Personal history of nicotine dependence; Z90.49 Acquired absence of other specified parts of digestive tract
CPT/HCPCS: 99283; 90471; 70450; 72125; 73070; 73110; 73130; 73502; 80048; 81003; 82550; 85025; 90715

== ENCOUNTER → 2024-04-02 10:00 | Outpatient (REF) | payer OTHER, SELFPAY ==
[2024-04-03 12:34] LABS: Hematocrit 41.3 % (39.0-52.0); Hemoglobin 13.8 g/dL (13.0-18.0); Mean Corp Hgb Conc. 33.4 g/dL (33.0-37.0); Mean Corpuscular Volume 95.8 fL (80.0-94.0); Red Blood Cell Count 4.31 10^6/uL (4.70-6.10); White Blood Cell Count 7.9 10^3/uL (4.8-10.8)
[2024-04-03 12:35] LABS: % Basophils 0.6 % (0-2); % Immature Granulocytes 0.4 % (0-0.5); % Lymphocytes 14.2 % (20.5-51.1); % Monocytes 5.5 % (1.7-9.3); % Neutrophils 77.3 % (42.2-75.2); Absolute Basophils 0.1 10^3/uL (0-0.2); Absolute Eosinophils 0.2 10^3/uL (0-0.7); Absolute Lymphocytes 1.1 10^3/uL (1.2-3.4); Absolute Monocytes 0.4 10^3/uL (0.1-0.6); Absolute Neutrophils 6.1 10^3/uL (1.4-6.5); Mean Platelet Volume 11.5 fL (7.4-10.4); Platelet Count 235 10^3/uL (130-400); Red Cell Dist. Width 14.4 % (11.5-14.5)
[2024-04-03 12:36] LABS: Nucleated Red Blood Cells % 0 % (-)
[2024-04-03 14:21] LABS: Blood Urea Nitrogen 16 mg/dl (9-20); Glucose 94 mg/dl (70-99); Sodium 137 mmol/L (135-145); TSH 1.63 uIU/ml (0.47-4.68); eGFR > 60.00
[2024-04-03 14:22] LABS: ALT (SGPT) 38 U/L (0-50); AST (SGOT) 32 U/L (17-59); Albumin 4.2 g/dl (3.5-5.0); Alkaline Phosphatase 114 U/L (38-126); Calcium 9.5 mg/dl (8.4-10.2); Carbon Dioxide 30 mmol/L (22-30); Chloride 104 mmol/L (98-107); Potassium 4.5 mmol/L (3.5-5.1); Total Bilirubin 0.5 mg/dl (0.2-1.3); Total Protein 6.3 g/dl (6.3-8.2)
== END ==
LOC: OLABPATH 10:00
PROVIDERS: ATTENDING PHYSICIAN Internal Medicine
DX: F03.90 Unspecified dementia, unspecified severity, without behavioral disturbance, psychotic disturbance, mood disturbance, and anxiety (principal)
CPT/HCPCS: 80053; 84443; 85025

== ENCOUNTER → 2024-04-07 10:09 | Outpatient (REF) | payer OTHER, SELFPAY | LOC: OLABPATH 10:09 | PROVIDERS: ATTENDING PHYSICIAN Internal Medicine | DX: G31.09 Other frontotemporal neurocognitive disorder (principal); R47.01 Aphasia | CPT/HCPCS: 36415; 80156 ==

== ENCOUNTER → 2024-06-18 13:13 | Outpatient (REF) | payer OTHER, SELFPAY ==
[2024-06-18 15:54] LABS: Tegretol (Carbamazepine) 7.6 ug/ml (4-12)
== END ==
LOC: OLABPATH 13:13
PROVIDERS: ATTENDING PHYSICIAN Internal Medicine
DX: G51.31 Clonic hemifacial spasm, right (principal)
CPT/HCPCS: 36415; 80156

== ENCOUNTER → 2024-07-14 13:37 | Outpatient (REF) | payer OTHER, SELFPAY ==
[2024-07-14 14:17] LABS: Tegretol (Carbamazepine) 15.9 ug/ml (4-12)
== END ==
LOC: OLABPATH 13:37
PROVIDERS: ATTENDING PHYSICIAN Internal Medicine
DX: G25.0 Essential tremor (principal); M62.81 Muscle weakness (generalized)
CPT/HCPCS: 36415; 80156

== ENCOUNTER → 2024-07-15 09:44 | Outpatient (REF) | payer OTHER, SELFPAY ==
[2024-07-15 11:36] LABS: Tegretol (Carbamazepine) 7.8 ug/ml (4-12)
== END ==
LOC: OLABPATH 09:44
PROVIDERS: ATTENDING PHYSICIAN Internal Medicine
DX: M62.81 Muscle weakness (generalized) (principal); G25.0 Essential tremor
CPT/HCPCS: 36415; 80156

== ENCOUNTER → 2024-08-14 11:24 | Outpatient (REF) | payer OTHER, SELFPAY ==
[2024-08-14 14:27] LABS: % Basophils 0.7 % (0-2); % Eosinophils 2.2 % (0-6); % Immature Granulocytes 0.3 % (0-0.5); % Lymphocytes 14.3 % (20.5-51.1); % Neutrophils 76.5 % (42.2-75.2); Absolute Eosinophils 0.1 10^3/uL (0-0.7); Absolute Lymphocytes 0.9 10^3/uL (1.2-3.4); Absolute Monocytes 0.4 10^3/uL (0.1-0.6); Absolute Neutrophils 4.6 10^3/uL (1.4-6.5); Hematocrit 38.8 % (39.0-52.0); Hemoglobin 13.1 g/dL (13.0-18.0); Mean Corp Hgb Conc. 33.8 g/dL (33.0-37.0); Mean Corpuscular Hgb 32.6 pg (27.0-31.0); Mean Corpuscular Volume 96.5 fL (80.0-94.0); Mean Platelet Volume 11.4 fL (7.4-10.4); Nucleated Red Blood Cells % 0 % (-); Platelet Count 217 10^3/uL (130-400); Red Blood Cell Count 4.02 10^6/uL (4.70-6.10); Red Cell Dist. Width 13.2 % (11.5-14.5)
[2024-08-14 14:50] LABS: ALT (SGPT) 29 U/L (0-50); AST (SGOT) 27 U/L (17-59); Albumin 4.4 g/dl (3.5-5.0); Alkaline Phosphatase 105 U/L (38-126); Blood Urea Nitrogen 16 mg/dl (9-20); Calcium 9.2 mg/dl (8.4-10.2); Carbon Dioxide 30 mmol/L (22-30); Chloride 101 mmol/L (98-107); Glucose 93 mg/dl (70-99); Potassium 4.2 mmol/L (3.5-5.1); Sodium 140 mmol/L (135-145); Tegretol (Carbamazepine) 7.7 ug/ml (4-12); Total Bilirubin 0.5 mg/dl (0.2-1.3); Total Protein 6.5 g/dl (6.3-8.2); eGFR > 60.00
== END ==
LOC: OLABPATH 11:24
PROVIDERS: ATTENDING PHYSICIAN Nurse Practitioner Adult Health; FAMILY PHYSICIAN Internal Medicine
DX: R47.01 Aphasia (principal); F02.80 Dementia in other diseases classified elsewhere, unspecified severity, without behavioral disturbance, psychotic disturbance, mood disturbance, and anxiety
CPT/HCPCS: 36415; 80053; 80156; 85025

== ENCOUNTER 2024-08-22 09:46 | Emergency (ER) | payer OTHER, SELFPAY ==
[2024-08-22 09:51] VITALS: BP 117/64
--- NOTE | 2024-08-22 09:54 | ED.GENMED ---
History of Present Illness
General
Chief Complaint: Fall
Source: patient
Exam Limitations: none
Time Seen by Provider: 08/22/24 09:47
Nursing documentation reviewed up to this point in time: agreed with
History of Present Illness
History of Present Illness:
Patient is a 78-year-old male with past medical history of dementia expressive aphasia hypertension chronic renal failure from dementia unit sent for evaluation of unwitnessed fall. Patient is not able to give history. He presents with an abrasion
to his forehead. He is not on blood thinners.
Past History
Past History
ED Past Medical History: None
ED Past Surgical History: Appendectomy and Orthopedic
Social History
Tobacco: Former smoker
Personal:
Review of Systems
Review of Systems
Allergies reviewed?: Yes
Unable to obtain full review of systems at this time due to: dementia
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
All Other Systems: ROS reviewed and negative except as documented in HPI and ROS
Skin: Reports other (Abrasion from forehead as per medics)
Phy Exam
General Physical Exam
General Presentation: no apparent distress
General age: appears stated age
General Skin: warm and dry
General Habitus: normal
General Mental: alert
General Hydration: appears well hydrated
Neurological Exam
Neurological Exam: alert
Musculoskeletal Exam
Musculoskeletal Exam: other (Abrasion to forehead moves all extremities without discomfort full range of motion to bilateral hips no deformity or swelling to joints)
Skin Exam
Skin Exam: normal color and warm/dry
Psychiatric Exam
Psychiatric Exam: normal mood/affect
Course
Orders/Labs/Results
Orders:
Orders
08/22/24 09:50
CT Cervical Spine W/o Iv Contr Urgent
Comment:
Reason For Exam: trauma
CT Head W/o Iv Contrast Urgent
Comment:
Reason For Exam: trauma
Vital Signs
Initial and Last Documented VS:
Initial Vital Signs
Temp Pulse Resp BP Pulse Ox
97.7 F 66 16 117/64 97
08/22/24 09:51 08/22/24 09:51 08/22/24 09:51 08/22/24 09:51 08/22/24 09:51
Last Documented Vital Signs
Temp Pulse Resp BP Pulse Ox
97.7 F 66 16 117/64 97
08/22/24 09:51 08/22/24 09:51 08/22/24 09:51 08/22/24 09:51 08/22/24 09:51
MDM/Problems Addressed
Differential Diagnosis Includes:
Not limited to head injury, abrasion, intracranial hemorrhage.
MDM/Problems Addressed:
Patient is a 78-year-old male who was sent by memory care unit for unwitnessed fall. Patient has abrasions to forehead. Patient has no complaints though he has expressive aphasia he is moving all extremity spontaneously. I am unable to reproduce
any pain with range of motion of extremities. He is on a blood thinners. CT head and cervical spine done and negative. Stable for discharge back to memory care facility. Patient received tetanus vaccine on March 2024 for abrasion
Chronic conditions affecting care:
Expressive aphasia, dementia
*Radiology
Radiology exam reviewed: radiology read reviewed
*Pulse Oximetry
Patient hypoxic: no
*Critical Care Note
Total Time (30-74mins, 75-104mins- exclusive of procedures): Not Applicable
ED Attending Note
-
Portions of this chart may have been created with voice recognition software.� Occasional wrong word or��sound alike� substitutions may have occurred due to the inherent limitations of voice recognition software.
Discharge Plan
Departure
Patient Disposition: Correction/SNF
Date of Disposition: 08/22/24
Time of Disposition: 12:06
Patient with high blood pressure during this ER visit?: No
Condition: Fair
Covid-19: Not Applicable
Discharge Problem:
Head injury, Abrasion
Instructions: Head Injury in Adults (DC), Contusion (DC), Skin Abrasions (DC)
Prescriptions:
No Action
dextromethorphan-guaifenesin [Guaifenesin DM] 10-100 mg/5 mL Syrup
10 ml PO Q4HPRN PRN (Reason: cough)
lacosamide [Vimpat] 100 mg Tablet
100 mg PO BID
Referrals:
UNKNOWN,NO INTERVIEW [Family Provider] -
Activity Restrictions/Additional Instructions:
Patient sustained an abrasion to forehead. CAT scan head and cervical spine were done and unremarkable. Patient should be evaluated by family doctor in the next several days return if any worsening of symptoms
Interventions
Interventions:
*Risk Screen - Suicide Last Done: 08/22/24 09:51
*General Assessment Last Done: 08/22/24 09:51
*Neglect/Abuse Screening Last Done: 08/22/24 09:51
ED- Fall Risk Assessment Last Done: 08/22/24 10:43
*ED COVID-19 Vaccine History Last Done: 08/22/24 10:43
ED-Musculoskeletal Assessment Last Done: 08/22/24 10:43
ED- Neurological Assessment Last Done: 08/22/24 10:43
ED-Skin Assessment Last Done: 08/22/24 10:43
Discharge Date and Time
Print Language: SLOVENIAN
[2024-08-22 14:14] VITALS: BP 124/74
== END 2024-08-22 14:34 ==
LOC: EMR 09:46
PROVIDERS: EMERGENCY PHYSICIAN Emergency Medicine
DX: S09.90XA Unspecified injury of head, initial encounter (principal); S00.81XA Abrasion of other part of head, initial encounter; S00.31XA Abrasion of nose, initial encounter; W19.XXXA Unspecified fall, initial encounter; F03.90 Unspecified dementia, unspecified severity, without behavioral disturbance, psychotic disturbance, mood disturbance, and anxiety; R47.01 Aphasia; I12.9 Hypertensive chronic kidney disease with stage 1 through stage 4 chronic kidney disease, or unspecified chronic kidney disease; N18.9 Chronic kidney disease, unspecified; R56.9 Unspecified convulsions; Z87.891 Personal history of nicotine dependence; Z91.048 Other nonmedicinal substance allergy status
CPT/HCPCS: 99284; 70450; 72125

== ENCOUNTER → 2024-09-22 10:58 | Outpatient (REF) | payer OTHER, SELFPAY ==
[2024-09-22 13:06] LABS: Hematocrit 34.8 % (39.0-52.0); Hemoglobin 11.7 g/dL (13.0-18.0); Mean Corp Hgb Conc. 33.6 g/dL (33.0-37.0); Mean Corpuscular Hgb 32.2 pg (27.0-31.0); Mean Corpuscular Volume 95.9 fL (80.0-94.0); Mean Platelet Volume 11.2 fL (7.4-10.4); Platelet Count 253 10^3/uL (130-400); Red Blood Cell Count 3.63 10^6/uL (4.70-6.10); Red Cell Dist. Width 13.4 % (11.5-14.5); White Blood Cell Count 4.5 10^3/uL (4.8-10.8)
[2024-09-22 13:54] LABS: ALT (SGPT) 26 U/L (0-50); AST (SGOT) 28 U/L (17-59); Albumin 3.4 g/dl (3.5-5.0); Alkaline Phosphatase 204 U/L (38-126); Blood Urea Nitrogen 16 mg/dl (9-20); Calcium 8.5 mg/dl (8.4-10.2); Carbon Dioxide 28 mmol/L (22-30); Chloride 102 mmol/L (98-107); Glucose 83 mg/dl (70-99); Magnesium 2.3 mg/dl (1.6-2.3); Sodium 137 mmol/L (135-145); Total Bilirubin 0.2 mg/dl (0.2-1.3); Total Protein 5.7 g/dl (6.3-8.2); eGFR > 60.00
[2024-09-22 13:57] LABS: Tegretol (Carbamazepine) 7.9 ug/ml (4-12)
[2024-09-22 14:01] LABS: Prealbumin (Transthyretin) 17.7 mg/dl (17.6-36.0)
[2024-09-22 14:15] LABS: Vitamin D, 25-OH*** < 12.8 ng/mL (30-80)
[2024-09-22 14:29] LABS: TSH 1.49 uIU/ml (0.47-4.68)
[2024-09-23 07:53] LABS: Intact PTH 64.2 pg/ml (13.6-85.8)
== END ==
LOC: OLABPATH 10:58
PROVIDERS: ATTENDING PHYSICIAN Internal Medicine
DX: N18.9 Chronic kidney disease, unspecified (principal); I50.9 Heart failure, unspecified; G51.31 Clonic hemifacial spasm, right; C88.00 Waldenstrom macroglobulinemia not having achieved remission
CPT/HCPCS: 36415; 80053; 80156; 82306; 83735; 83970; 84134; 84443; 85027

== ENCOUNTER → 2024-09-30 11:22 | Outpatient (REF) | payer OTHER, SELFPAY ==
[2024-09-30 11:50] LABS: % Basophils 0.4 % (0-2); % Eosinophils 0.3 % (0-6); % Immature Granulocytes 0.3 % (0-0.5); % Lymphocytes 13.5 % (20.5-51.1); % Monocytes 12.8 % (1.7-9.3); % Neutrophils 72.7 % (42.2-75.2); Absolute Neutrophils 5.6 10^3/uL (1.4-6.5); Hematocrit 32.1 % (39.0-52.0); Hemoglobin 10.8 g/dL (13.0-18.0); Mean Corp Hgb Conc. 33.6 g/dL (33.0-37.0); Mean Corpuscular Hgb 32.7 pg (27.0-31.0); Mean Corpuscular Volume 97.3 fL (80.0-94.0); Mean Platelet Volume 11.4 fL (7.4-10.4); Nucleated Red Blood Cells % 0 % (-); Platelet Count 219 10^3/uL (130-400); Red Cell Dist. Width 14.4 % (11.5-14.5); White Blood Cell Count 7.6 10^3/uL (4.8-10.8)
[2024-09-30 12:10] LABS: ALT (SGPT) 21 U/L (0-50); AST (SGOT) 23 U/L (17-59); Albumin 3.7 g/dl (3.5-5.0); Alkaline Phosphatase 146 U/L (38-126); Blood Urea Nitrogen 26 mg/dl (9-20); Carbon Dioxide 27 mmol/L (22-30); Chloride 105 mmol/L (98-107); Glucose 96 mg/dl (70-99); Potassium 4.2 mmol/L (3.5-5.1); Sodium 140 mmol/L (135-145); Total Bilirubin 0.6 mg/dl (0.2-1.3); eGFR > 60.00
== END ==
LOC: OLABPATH 11:22
PROVIDERS: ATTENDING PHYSICIAN Internal Medicine
DX: R47.01 Aphasia (principal); F02.A0 Dementia in other diseases classified elsewhere, mild, without behavioral disturbance, psychotic disturbance, mood disturbance, and anxiety
CPT/HCPCS: 36415; 80053; 85025

== ENCOUNTER → 2024-10-06 10:18 | Outpatient (REF) | payer OTHER, SELFPAY ==
[2024-10-06 14:05] LABS: Iron 77 ug/dl (49-181)
== END ==
LOC: OLABPATH 10:18
PROVIDERS: ATTENDING PHYSICIAN Internal Medicine
DX: E61.1 Iron deficiency (principal)
CPT/HCPCS: 36415; 82728; 83540

== ENCOUNTER 2024-10-22 16:40 | Inpatient (IN) | payer OTHER, SELFPAY ==
[2024-10-22] VITALS (28 sets, daily range): BP systolic 81–130; BP diastolic 30–93; BMI 19.1
--- NOTE | 2024-10-22 13:34 | ED.GENMED ---
History of Present Illness
General
Chief Complaint: Change in Mental Status
Source: patient
Exam Limitations: none
Time Seen by Provider: 10/22/24 13:25
Nursing documentation reviewed up to this point in time: agreed with
History of Present Illness
History of Present Illness:
78-year-old male presents emergency ferment due to altered mental status. His heart rate was in the 30s, and low blood pressure. He was given IV fluids and 1 mg atropine and improved.
Past History
Past History
ED Past Medical History: HTN and Seizures
ED Past Surgical History: Appendectomy and Orthopedic
Social History
Tobacco: Former smoker
Personal:
Review of Systems
Review of Systems
Allergies reviewed?: Yes
All Other Systems: Not applicable
Constitutional: Reports fatigue
Cardiac: Reports syncope
ABD/GI: Reports no symptoms
Phy Exam
Physical Exam
Physical Exam:
Physical Exam
General: Elderly, frail
Neck: supple. no meningeal signs. normal posterior pharynx
Heart: s1/s2 bradycardia, no murmur. equal radial
pulses.
HEENT: Pupils equal round reactive to light, EOMI
Lungs: no acute respiratory distress. clear bilaterally
Abdomen: normal bowel sounds. not tender. no CVAT
Neuro: alert but nonverbal. Moves all extremities, at behavioral baseline
Skin: no rash
Psychiatric: Nonverbal
Extremities: no edema. no calf tenderness. negative homans. good distal pulses
Course
Orders/Labs/Results
Orders:
Orders
10/22/24 13:21
Electrocardiogram (*1) Urgent
Reason for Study: Chest Pain
EKG- Treatment ONCE
10/22/24 13:33
IV Insert/Care/Rem.- Treatment PRN
10/22/24 13:35
Complete Blood Count/With Diff Urgent
Lactic Acid Q4H
Comment: CANCEL 2nd LACTIC ACID IF 1st LACTIC ACID IS LESS THAN 2
NT-proBNP Urgent
TSH Urgent
10/22/24 14:57
Comprehensive Metabolic Panel Urgent
Creatine Phosphokinase Urgent
Comment: ADD ON
Lactic Acid Q4H
Comment: CANCEL 2nd LACTIC ACID IF 1st LACTIC ACID IS LESS THAN 2
Magnesium Urgent
Troponin I Urgent
10/22/24 Dinner
IDDSI 4 - Pureed
At Your Request: Non-Participating
10/22/24 15:06
Atropine Sulfate [Atropine 0.1 mg/ml Syringe] 1 mg .ROUTE .STK-MED ONE
10/22/24 15:11
0.9% Sodium Chloride 500 ml [Nss] 500 ml IV BOLUS
10/22/24 16:23
Admit/Transfer Patient As Directed
Co-Sign Provider:
Level of Care: Inpatient admission
Assign to:: IVU
Physician / Group: apolinar
Diagnosis: near syncope
Reason for Hospitalization: near syncope
Expected length of stay greater than two midnights?: Yes
ELOS- Estimated Length of Stay in days: 2
I certify the patient meets the requirements for IP care: Yes
Code Status As Directed
Resuscitation Status: Do not resuscitate
Reached after discussion with pt or family/Healthcare POA: Yes
DNR Bracelet Application ONCE
PRN Pain Medication Management As Directed
May give lesser potent ordered pain med per pt: Yes
preference::
Protocol:: Medication orders for pain may be administered in a
manner that supports deferring to patient preference
when the pt is:
- Requesting an ordered lesser potent pain medication.
Least to most potent pain medications are defined
as: acetaminophen < NSAID < tramadol < opioids
(morphine, oxycodone, hydromorphone).
- Requesting a lesser dose of the same medication IF
ORDERED.
- Requesting a less intrusive route of administration
if both routes are prescribed by the provider (PO <
IV).
10/22/24 16:35
Add On- LAB Routine
Tests Added?: CK
10/22/24 18:11
Troponin I Routine
10/22/24 18:18
Troponin I Q6H
0.9% Sodium Chloride 1000 ml [Nss] 1,000 ml IV 100 mls/hr
10/22/24 18:18
CARDIOLOGY CONSULT Routine
Consulting Provider: Elijah Paz
Was physician already notified: Yes
TSH Reflex To Free T4 Routine
Activity As Directed
Activity Level: As Tolerated
Vital Signs As Directed
Frequency: Per unit guidelines
DX Deep Vein Thrombosis Video Routine
10/22/24 20:00
Heparin 5,000 units SC Q12
10/23/24 00:18
Troponin I Q6H
10/23/24 06:00
Complete Blood Count/With Diff IN AM
Comprehensive Metabolic Panel IN AM
10/23/24 06:18
Troponin I Q6H
10/23/24 12:18
Troponin I Q6H
Abnormal Lab Results
10/22/24 10/22/24
13:35 14:57
WBC 4.2 L 10^3/uL
(4.8-10.8)
RBC 3.42 L 10^6/uL
(4.70-6.10)
Hgb 11.2 L g/dL
(13.0-18.0)
Hct 34.5 L %
(39.0-52.0)
MCV 100.9 H fL
(80.0-94.0)
MCH 32.7 H pg
(27.0-31.0)
MCHC 32.5 L g/dL
(33.0-37.0)
Absolute Lymphs (auto) 1.0 L 10^3/uL
(1.2-3.4)
BUN 21 H mg/dl
(9-20)
Creatinine 0.6 L mg/dL
(0.7-1.3)
Calcium 8.2 L mg/dl
(8.4-10.2)
Creatine Kinase 37 L U/L
(55-170)
Troponin I 0.087 H* ng/ml
Total Protein 5.1 L g/dl
(6.3-8.2)
Albumin 3.0 L g/dl
(3.5-5.0)
10/22/24 13:35
10/22/24 14:57
Vital Signs
Initial and Last Documented VS:
Initial Vital Signs
Temp Pulse Resp BP Pulse Ox
97.7 F 53 14 93/30 97
10/22/24 13:21 10/22/24 13:21 10/22/24 13:21 10/22/24 13:21 10/22/24 13:21
Last Documented Vital Signs
Temp Pulse Resp BP Pulse Ox
97.7 F 56 11 120/67 100
10/22/24 13:21 10/22/24 18:30 10/22/24 18:30 10/22/24 18:30 10/22/24 15:30
MDM/Problems Addressed
Differential Diagnosis Includes:
Dysrhythmia, seizure
MDM/Problems Addressed:
78 yo male with syncope episode, bradycardia, doubt seizure, EMS states he is at baseline. Admit to hospitalist. Cardiology saw patient, will observe.
Chronic conditions affecting care: Neurological disorder (Seizures)
Acute Exacerbation and/or Progression of Chronic Illness: Neurological disorder (Expressive aphasia)
*Pulse Oximetry
Patient hypoxic: no
*EKG
Interpreted by ED Provider?: Yes
EKG Intrepretation Date: 10/22/24
EKG Intrepretation Time: 13:27
Interpretation: abnormal
Comparison EKG: changes noted
Heart Rate: 53
Rate: bradycardiac
Rhythm: sinus
Freedom: normal axis
Interval: normal interval
QRS Pattern: normal QRS
Ischemia: no ischemia
*Con[employer]uster Interpretation
Rate: bradycardiac
Interpretation: abnormal
Heart Rate: 44
Rhythm: sinus
*Critical Care Note
Total Time (30-74mins, 75-104mins- exclusive of procedures): 30
comment:
Critical care statement: A total of 30 minutes of critical care time was provided for this patient. This includes management of unstable vital signs, evaluation of the patient at bedside, reviewing the patient's pertinent medical records, discussion
with consultants, review of old EKGs and review of pertinent medical records. This time with separate from time utilized to perform the aforementioned documented procedures
Patient Management
Social determinants of health affecting care: Living situation
Discussion with other providers: Hospitalist and Histology Technician (Cardiology, Dr. Paz)
Escalation/DeEscalation of care consider admission/obs:
admit indicated
ED Attending Note
-
Portions of this chart may have been created with voice recognition software.� Occasional wrong word or��sound alike� substitutions may have occurred due to the inherent limitations of voice recognition software.
Discharge Plan
Departure
Patient Disposition: Admit
Date of Disposition: 10/22/24
Time of Disposition: 15:50
Admit to: IMU
Presentation/result/management discussed w/ accepting MD/DO: Hospitalist
Patient with high blood pressure during this ER visit?: No
Condition: Fair
Discharge Problem:
Syncope, Bradycardia with 31-40 beats per minute
Interventions
Interventions:
*Risk Screen - Suicide Last Done: 10/22/24 13:21
*General Assessment Last Done: 10/22/24 13:21
*Neglect/Abuse Screening Last Done: 10/22/24 13:21
*ED COVID-19 Vaccine History Last Done: 10/22/24 14:30
ED- Neurological Assessment Last Done: 10/22/24 14:30
[2024-10-22 13:48] LABS: % Basophils 0.5 % (0-2); % Eosinophils 0.5 % (0-6); % Immature Granulocytes 0.2 % (0-0.5); % Lymphocytes 23.9 % (20.5-51.1); % Monocytes 8.4 % (1.7-9.3); % Neutrophils 66.5 % (42.2-75.2); Absolute Monocytes 0.4 10^3/uL (0.1-0.6); Absolute Neutrophils 2.8 10^3/uL (1.4-6.5); Hematocrit 34.5 % (39.0-52.0); Hemoglobin 11.2 g/dL (13.0-18.0); Mean Corp Hgb Conc. 32.5 g/dL (33.0-37.0); Mean Corpuscular Hgb 32.7 pg (27.0-31.0); Mean Corpuscular Volume 100.9 fL (80.0-94.0); Nucleated Red Blood Cells % 0 % (-); Platelet Count 196 10^3/uL (130-400); Red Blood Cell Count 3.42 10^6/uL (4.70-6.10); Red Cell Dist. Width 14.3 % (11.5-14.5); White Blood Cell Count 4.2 10^3/uL (4.8-10.8)
[2024-10-22 14:01] LABS: Lactic Acid 1.1 mmol/L (0.7-2.0)
[2024-10-22 14:14] LABS: NT-proBNP 1050 pg/ml
[2024-10-22 14:36] LABS: TSH 1.35 uIU/ml (0.47-4.68)
[2024-10-22 15:21] LABS: ALT (SGPT) 14 U/L (0-50); AST (SGOT) 20 U/L (17-59); Alkaline Phosphatase 96 U/L (38-126); Blood Urea Nitrogen 21 mg/dl (9-20); Calcium 8.2 mg/dl (8.4-10.2); Carbon Dioxide 29 mmol/L (22-30); Chloride 105 mmol/L (98-107); Glucose 81 mg/dl (70-99); Lactic Acid 1.3 mmol/L (0.7-2.0); Magnesium 2.1 mg/dl (1.6-2.3); Potassium 3.9 mmol/L (3.5-5.1); Sodium 138 mmol/L (135-145); Total Bilirubin 0.4 mg/dl (0.2-1.3); Total Protein 5.1 g/dl (6.3-8.2); eGFR > 60.00
[2024-10-22] MEDS: NSS 500 IV (15:22)
[2024-10-22 15:32] LABS: Troponin I 0.087 ng/ml
--- NOTE | 2024-10-22 16:22 | CON.CAR ---
Consultation
Consultation Request
Date/Time Consultation Requested: 10/22/24 @ 3:48 pm
Date/Time Consultation Performed: 10/22/24 @ 4:23 pm
Requesting Provider: Feliberto Bailey MD
Performing Provider: Elijah Paz MD
Reason for Consultation: near syncope
Medical History
-
Chief Complaint: bradycardia and hypotension
History of Present Illness:
78-year-old man with dementia, seizures and expressive aphasia who presents from memory care unit after reported near syncopal episode. History is extremely limited due to patient's nonverbal status and no staff/family at bedside. Medics reported
that he was bradycardic to the 30s and hypotensive at his nursing facility. They gave him 300 cc IV fluid and 1 mg atropine and route to the hospital and his vital signs improved. At the time of my evaluation he is in sinus rhythm with heart rate
in the 50s and BP 110s/70s. On review of telemetry, there is sinus bradycardia with no high-grade AV block. Twelve-lead ECG shows sinus bradycardia, HR 50s.
Past Medical History
Past Medical History: Other (dementia, seizures, expressive aphasia)
Social History
Living: Shelter
Family History
Family History: Unable to Obtain
Allergies / Home Medications
Allergy/AdvReac Type Severity Reaction Status Date / Time
seasonal Allergy Unknown Uncoded 02/10/24 09:33
�Medication �Instructions �Recorded �Confirmed �Type
dextromethorphan-guaifenesin 10 10 ml PO Q4HPRN PRN cough 12/07/23 12/07/23 History
mg-100 mg/5 mL oral syrup
lacosamide 100 mg tablet (Vimpat) 100 mg PO BID 12/07/23 12/07/23 History
Review of Systems
-
Unable to obtain full review of systems at this time due to: Dementia and Patient Non Verbal
Physical Exam
Vital Signs
Temp Pulse Resp BP Pulse Ox
97.7 F 47 12 117/79 100
10/22/24 13:21 10/22/24 16:00 10/22/24 16:00 10/22/24 16:00 10/22/24 15:30
Lab Results
10/22/24 13:35
10/22/24 14:57
Troponin I 0.087 ng/ml H* 10/22/24 14:57
Fqk-K-Vgyusaxmhqu Pept 1050 pg/ml 10/22/24 13:35
Physical Exam
General: Well Developed, Well Nourished and No Apparent Distress
Respiratory: Non Labored Respirations
Cardiac: S1/S2 and Regular Rhythm; Negative Murmur or Peripheral Edema
Impression / Plan
-
78-year-old man with dementia, seizures and expressive aphasia who presents from memory care unit after near syncopal episode with reported bradycardia and hypotension.
Sinus bradycardia
-Unclear etiology as patient is nonverbal and we have no reliable history. No rhythm strips from EMS. On telemetry here he has been in sinus rhythm with no high-grade AV block or long pauses
-No obvious metabolic derangements and TSH is normal. Vasovagal episode is possible.
-ER planning to monitor on telemetry for a few hours and discharge if no further events which is reasonable
-No role for temporary pacemaker at this time
-We can have him wear an outpatient monitor if he has recurrence. I will put our office information in discharge paperwork for him to schedule.
Hypotension
-May be related to bradycardia as above. Possible vasovagal
-Improved with IVF
-Ensure he stays adequately hydrated
Troponin elevation
-Suspect due to nonischemic myocardial injury, may be in the setting of seizure or being down at his group home
-Check CK
-Trend 1 more troponin and if stable or decreasing, okay to stop trending
-He is not a good candidate for ischemic evaluation
Data Reviewed
-
EKG: Tracing Personally Visualized and interpreted, Discussed with Physician and Discussed with Nurse
Labs: Labs Reviewed by me and Discussed with Physician
Old Records: Reviewed
--- NOTE | 2024-10-22 16:26 | HPS.HSE ---
Addendum entered and electronically signed by Luis M Lui MD 10/22/24 17:02:
Continued carbamazepine.
Original Note:
Family Physician
-
Family Physician: Ned Sarah
Chief Complaint
-
altered mental status
History of Present Illness
78-year-old male past medical history of frontotemproal dementia, possible seizure disorder presenting from custodial for altered mental status. He was slurring his words and heart rate was in the 30s with low blood pressure. EMS was called and
he was given 1 mg of atropine and IV fluids en route. When he arrived he was hypotensive blood pressure in 80s to 90s and given further IV fluids with improvement in heart rate.
As per daughter patient is mostly wheelchair-bound at baseline. He has been having progressive frontotemporal dementia and cannot talk at baseline. He has been having ongoing facial twitching and has been evaluated by neurology for seizure
disorder. He had EEG and several tests which were inclusive. He was empirically started on seizure medication which she has been taking.
Patient was recently on Keflex last week for an inflamed lymph node under his neck. Daughter is not sure if he completed Keflex. He was not having any other symptoms of infection such as nausea vomiting or diarrhea or fever.
He can eat normal food but tends to prefer pur�ed solid food.
No smoking or alcohol use history.
No family history of heart disease or neurological problems.
Medical History
Past Medical History
Past Medical History: Reports Other ( frontotemproal dementia, possible seizure disorder)
Past Surgical History: Reports None
Social History
Tobacco: Non-smoker
Alcohol: None
Drug: None
Family History
Family History: Not pertinent
Allergies / Home Medications
Allergies reflects when Allergies were last updated in [facility] [facility].
Home Medications with original date entered in [facility] [facility]
Allergy/Medication List:
Allergies
Allergy/AdvReac Type Severity Reaction Status Date / Time
seasonal Allergy Unknown Uncoded 02/10/24 09:33
Home Medications
dextromethorphan-guaifenesin 10 mg-100 mg/5 mL oral syrup 10 ml PO Q4HPRN PRN cough 12/07/23
lacosamide 100 mg tablet (Vimpat) 100 mg PO BID 12/07/23
Review of Systems
-
History Source: Patient
A 12 point ROS was completed and negative except as noted: Yes
Constitutional: Reports No Symptoms
EENT: Reports No Symptoms
Respiratory: Reports No Symptoms
Cardiac: Reports No Symptoms
Abdomen/GI: Reports No Symptoms
: Reports No Symptoms
Musculoskeletal: Reports No Symptoms
Skin: Reports No Symptoms
Neurological: Reports No Symptoms
Endocrine: Reports No Symptoms
Hematologic/Lymphatic: Reports No Symptoms
Psych: Reports No Symptoms
Physical Exam
Vital Signs
Vital Signs
Temp Pulse Resp BP Pulse Ox
97.7 F 47 12 117/79 100
10/22/24 13:21 10/22/24 16:00 10/22/24 16:00 10/22/24 16:00 10/22/24 15:30
Physical Exam
General: Well Developed, Well Nourished and No Apparent Distress
HEENT: NormoCephalic, Moist mucous membranes and Atraumatic
Respiratory: Clear
Cardiac: S1/S2 and Regular Rhythm; No Murmur or Rub
GI: Soft, Non Tender, Non Distended and Normal Bowel Sounds; No Organomegaly
Rectal: Deferred by Provider
Musculoskeletal: No Clubbing, No Cyanosis and No Edema
Skin: No Rash
Neuro: Nonfocal/grossly intact
Laboratory Results
-
10/22/24 13:35
10/22/24 14:57
Laboratory Results
Lactic Acid 1.3 mmol/L (0.7-2.0) 10/22/24 14:57
Total Bilirubin 0.4 mg/dl (0.2-1.3) 10/22/24 14:57
AST 20 U/L (17-59) 10/22/24 14:57
ALT 14 U/L (0-50) 10/22/24 14:57
Alkaline Phosphatase 96 U/L (38-126) 10/22/24 14:57
Troponin I 0.087 ng/ml H* 10/22/24 14:57
Data Reviewed
-
Lab Data: Labs Reviewed by me
Old Records: Reviewed
Impression/Plan
-
IMPRESSION:
PLAN:
# Near syncope secondary to symptomatic sinus bradycardia
-Heart rate 30s to 40s
-EKG shows sinus bradycardia
-Blood pressure 90s improved to 108/50 with IV fluids
-Continue IV fluids
-Check TSH
-Trend troponins
-Cardiology consulted
Frontotemporal dementia
-Patient cannot speak at baseline
Possible seizure disorder
-Ongoing facial twitches at this time which is not unusual as per daughter
-Has been evaluated for seizure disorder
Chronic anemia
-Hemoglobin stable
DNR/DNI
DVT prophylaxis-heparin
Pur�ed diet
[2024-10-22 18:04] LABS: Creatine Phosphokinase 37 U/L (55-170)
[2024-10-22] MEDS: NSS 1000 IV (18:29)
[2024-10-22 18:44] LABS: Troponin I 0.071 ng/ml
[2024-10-22] MEDS: TEGRETOL 400 MG PO ×2 (19:36→23:00)
[2024-10-22] MEDS: HEPARIN 5000 UNITS SC (19:38)
[2024-10-22 22:52] LABS: TSH Reflex To Free T4 0.94 uIU/ml (0.47-4.68)
[2024-10-22] MEDS: TYLENOL 1000 MG PO (23:00)
[2024-10-23] VITALS (9 sets, daily range): BP systolic 99–158; BP diastolic 62–113
[2024-10-23] MEDS: NSS 1000 IV (04:35)
[2024-10-23 07:10] LABS: % Basophils 0.4 % (0-2); % Eosinophils 1.6 % (0-6); % Immature Granulocytes 0.4 % (0-0.5); % Lymphocytes 29.9 % (20.5-51.1); % Monocytes 6.4 % (1.7-9.3); % Neutrophils 61.3 % (42.2-75.2); Absolute Lymphocytes 0.8 10^3/uL (1.2-3.4); Absolute Monocytes 0.2 10^3/uL (0.1-0.6); Absolute Neutrophils 1.5 10^3/uL (1.4-6.5); Hematocrit 36.4 % (39.0-52.0); Hemoglobin 12.1 g/dL (13.0-18.0); Mean Corp Hgb Conc. 33.2 g/dL (33.0-37.0); Mean Corpuscular Volume 99.2 fL (80.0-94.0); Mean Platelet Volume 9.5 fL (7.4-10.4); Nucleated Red Blood Cells % 0 % (-); Platelet Count 194 10^3/uL (130-400); Red Blood Cell Count 3.67 10^6/uL (4.70-6.10); Red Cell Dist. Width 13.7 % (11.5-14.5); White Blood Cell Count 2.5 10^3/uL (4.8-10.8)
[2024-10-23 08:17] LABS: Troponin I 0.064 ng/ml
[2024-10-23 08:24] LABS: Blood Urea Nitrogen 18 mg/dl (9-20); Calcium 8.2 mg/dl (8.4-10.2); Carbon Dioxide 27 mmol/L (22-30); Chloride 104 mmol/L (98-107); Estimated Creatinine Clearance 98 ml/min; Glucose 70 mg/dl (70-99); Sodium 138 mmol/L (135-145); eGFR > 60.00
[2024-10-23] MEDS: HEPARIN 5000 UNITS SC (08:50)
[2024-10-23] MEDS: TEGRETOL 400 MG PO ×2 (08:50→13:19)
[2024-10-23] MEDS: TYLENOL 1000 MG PO (08:50)
[2024-10-23 12:42] LABS: Potassium 3.7 mmol/L (3.5-5.1)
[2024-10-23 13:01] LABS: Troponin I 0.059 ng/ml
--- NOTE | 2024-10-23 14:32 | CM ---
Addendum entered by Marisabel Martínez RN 10/23/24 14:38:
Plan to return to [facility] [place]. CM updated AMRIK Jamison with plan for discharge.
[facility]
Report
[phone]
fax
[phone]
Original Note:
Plan for return to [facility]. CM left message for nursing at [facility] to confirm acceptance.
--- NOTE | 2024-10-23 14:40 | W.PN.HOSP.TC ---
Today's Communication/Plan
-
dc back to [facility]
Assessment / Plan
Assessment / Plan
Assessment:
PLAN:
Near syncope secondary to symptomatic sinus bradycardia vs vagal event
- TSH normal
- HRs 70s today
- Cardiology evaluated; no role for pacemaker. OP Cardiac monitoring per Cardiology
Non-ischemic trop elevation (non-ischemic myocardial injury)
- .087 peak
Frontotemporal dementia
- Patient cannot speak at baseline
Possible seizure disorder
- Ongoing facial twitches at this time which is not unusual as per daughter
- Has been evaluated for seizure disorder
Chronic anemia
- Hemoglobin stable
DVT ppx: SC heparin
Code: DNR/DNI
More than 30 minutes spent in discharge including
Final examination of the patient
Summarizing hospital stay
Instructions for continuing care to all relevant caregivers
Preparation of discharge records, prescriptions, and referral forms
Total time spent (in minutes):41
Anticipated Discharge: Today
Subjective/Interval History
-
Date of Service: October 23, 2024
resting comfortably, no complaints
Objective Data
-
Labs:
Laboratory Results
10/23/24 10/23/24
07:02 12:16
WBC 2.5 L
Hgb 12.1 L
Hct 36.4 L
Plt Count 194
Sodium 138
Potassium 3.7
Chloride 104
Carbon Dioxide 27
BUN 18
Creatinine 0.5 L
Glucose 70
Calcium 8.2 L
Total Bilirubin Cancelled
AST Cancelled
ALT Cancelled
Alkaline Phosphatase Cancelled
Vital Signs:
Vital Signs
Temp Pulse Resp BP Pulse Ox
97.7 F 64 12 139/69 96
10/22/24 13:21 10/23/24 13:15 10/23/24 13:15 10/23/24 13:00 10/23/24 01:15
Physical Exam
-
General: No Apparent Distress
HEENT: Normocephalic and Atraumatic
Respiratory: Negative Wheezes
Cardiac: Regular Rhythm and S1/S2
GI: Soft and Nontender
Genito-urinary: No Costovertebral Tender
Neuro: AO x 3
Psych: Apparent Dementia
Data Reviewed
-
Total Time Spent with Patient (in minutes): 41
Labs: Labs Reviewed by me
--- NOTE | 2024-10-23 14:45 | W.DS.TRANS ---
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
-
Discharge Instructions:
Discharge Diagnosis/Procedures syncope - vagal vs transient bradycardia (
bradycardia resolved)
Diet Other diet
Additional Diets IDDSI 4 pureed diet
Activity As tolerated
Instructions:
Stand-Alone Forms:
Changes to Home Medications: No
Discharge Medications:
DC Medications w/original date entered in [email or web address]
acetaminophen 500 mg tablet (Tylenol Extra Strength) 1,000 mg PO TID 10/22/24
carbamazepine 200 mg tablet 400 mg PO QID 10/22/24
dextromethorphan 5 mg-guaifenesin 50 mg/5 mL oral liquid (Tussin DM) 5 ml PO Q4HPRN PRN cough 10/22/24
emollient combination no.119 (Eucerin Advanced Repair topical cream) 1 applic topical BIDPRN PRN dry skin 10/22/24
ketoconazole 2 % shampoo 1 applic topical DAILYPRN PRN fungal/dandruff 10/22/24
loperamide 2 mg capsule 2 mg PO DAILYPRN PRN diarrhea 10/22/24
melatonin 3 mg tablet 3 mg PO HSPRN PRN sleep 10/22/24
Home Medication Changes
Pending Results: No
Total time spent discharging patient (in min): 41
--- NOTE | 2024-10-23 15:13 | EDRN ---
Report given to Annabelle at [facility]
== END 2024-10-23 15:40 | disposition home or self-care (01) | DRG 315 ==
LOC: ED 16:40
PROVIDERS: ADMITTING PHYSICIAN Hospitalist; ATTENDING PHYSICIAN Internal Medicine; CONSULT PHYSICIAN Student in an Organized Health Care Education/Training Program; EMERGENCY PHYSICIAN Emergency Medicine; FAMILY PHYSICIAN Internal Medicine
DX: I95.9 Hypotension, unspecified (principal); I5A Non-ischemic myocardial injury (non-traumatic); R47.01 Aphasia; R00.1 Bradycardia, unspecified; R55 Syncope and collapse; G31.09 Other frontotemporal neurocognitive disorder; F02.80 Dementia in other diseases classified elsewhere, unspecified severity, without behavioral disturbance, psychotic disturbance, mood disturbance, and anxiety; D64.9 Anemia, unspecified; G40.909 Epilepsy, unspecified, not intractable, without status epilepticus; Z66 Do not resuscitate; I10 Essential (primary) hypertension; Z79.899 Other long term (current) drug therapy; Z87.891 Personal history of nicotine dependence; Z99.3 Dependence on wheelchair
CPT/HCPCS: 80048; 80053; 82550; 83605; 83735; 83880; 84132; 84443; 84484; 85025; 93005; 96360; 99291